=== PATIENT | female | born 1945 | race Caucasian/White ===

== ENCOUNTER 2020-10-17 08:30 | Day surgery (SDC) | payer MEDICARE, MEDICAID ==
[~2020-10-17 08:30] MED LIST: Acetaminophen 1,000 MG in Premix Bag 1 BAG IV ONE; Bupivacaine 25%/EPINEPHrine/PF 30 ML ONE; Glycopyrrolate 0.2 MG/ML SDV ONE; Ketorolac 30 MG/ML SDV ONE; Lactated Ringers 1,000 ML IV SCH; Lidocaine 2% 5 ML SDV ONE; Midazolam 1 MG/ML 2 ML SDV ONE; Octyl 2-Cyanoacrylate 1 Tube ONE; Ondansetron 4 MG/2 ML SDV ONE; Pregabalin 75 MG Cap PO ONE; Propofol 200 MG/20 ML SDV ONE; Rocuronium Bromide 50 MG/5 ML Syringe ONE; Sugammadex Sodium 200 MG/2 ML VIAL ONE; ceFAZolin 1 GM in Premix Bag 1 BAG IV ONE; fentaNYL 100 MCG/2 ML SDV ONE
--- NOTE | 2020-10-17 08:48 | PCM.PREANE ---
Preanesthetic Assessment - Procedure Proposed Procedure: Right Ing Hernia repair, poss Left - Anesthesia/Transfusion/Family Hx Anesthesia History: Prior Anesthesia Without Reaction Transfusion History: No Prior Transfusion(s) - Review of Systems General: No Symptoms Pulmonary: No Symptoms (COPD, Asthma uses singular MDI daily and does Albuterol [place] twice daily) Cardiovascular: No Symptoms Gastrointestinal: No Symptoms Neurological: No Symptoms (h/o seizures as child/young adult, controlled on Phenytoin, no szs last 40 years) Other: Reports: None - Physical Assessment NPO Status Date: 10/16/20 NPO Status Time: 22:30 Height: 5 ft 3 in Weight: 64.41 kg ASA Class: 3 Mental Status: Alert & Oriented x3 Airway Class: Mallampati = 3 Dentition: Reports: Dentures Thyro-Mental Finger Breadths: 3 Mouth Opening Finger Breadths: 2 ROM/Head Extension: Full Lungs: Clear to Auscultation, Normal Respiratory Effort Cardiovascular: Regular Rate, Regular Rhythm - Allergies Allergies/Adverse Reactions: Allergies Allergy/AdvReac Type Severity Reaction Status Date / Time No Known Allergies Allergy Verified 10/11/20 08:45 - Acknowledgements Anesthesia Type Planned: General Anesthesia Pt an Appropriate Candidate for the Planned Anesthesia: Yes Alternatives and Risks of Anesthesia Discussed w Pt/Guardian: Yes Pt/Guardian Understands and Agrees with Anesthesia Plan: Yes PreAnesthesia Questionnaire - Past Health History Medical/Surgical History: Denies Medical/Surgical History HEENT History: Reports: Impaired Vision Other HEENT History: wears glasses, Partial denture on top Cardiovascular History: Reports: None Respiratory History: Reports: Asthma, COPD Gastrointestinal History: Reports: None Genitourinary History: Reports: UTI, Recurrent 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: Musculoskeletal History: Reports: Osteoporosis Neurological History: Reports: Seizure Psychiatric History: Reports: None Endocrine/Metabolic History: Reports: None Hematologic History: Reports: None Immunologic History: Reports: Immunosuppression Oncologic (Cancer) History: Reports: None Dermatologic History: Reports: None - Infectious Disease History Infectious Disease History: Reports: Chicken Pox - Past Surgical History GI Surgical History: Reports: Appendectomy - SUBSTANCE USE Tobacco Use Status *Q: Never Tobacco User Recreational Drug Use History: No - HOME MEDS Home Medications: Home Meds Albuterol Sulfate 1 inhalation NEB Q6HR PRN 06/14/14 [History] Budesonide/Formoterol [Symbicort 160-4.5 MCG] 2 puff IH BID PRN 06/14/14 [History] carBAMazepine [Carbamazepine ER] 100 mg PO TID 06/14/14 [History] carBAMazepine [Carbamazepine] 400 mg PO BID 06/14/14 [History] Albuterol [Ventolin HFA] 2 inh IH Q4H PRN 12/25/16 [History] Ipratropium [Atrovent] 1 inhalation NEB QID PRN 12/25/16 [History] Phenytoin Sodium Extended [Dilantin] 100 mg PO TID 12/25/16 [History] Alendronate Sodium 10 mg PO DAILY 10/11/20 [History] Calcium Carbonate [Calcium] 600 mg PO DAILY 10/11/20 [History] Fluticasone Propionate [Flonase Allergy Relief] 1 - 2 spray NASBOTH DAILY PRN 10/11/20 [History] Potassium Chloride 10 meq PO TID 10/11/20 [History] Vit A/Vit C/Vit E/Zinc/Copper [Preservision] 1 tab PO DAILY 10/11/20 [History] Vitamin E 200 units PO DAILY 10/11/20 [History] - CURRENT (IN HOUSE) MEDS Current Meds: Current Medications Lactated Ringer's (Ringers, Lactated) 1,000 mls @ 125 mls/hr IV ASDIRECTED FLORENCIA Discontinued Medications Fentanyl (Fentanyl 100 Mcg/2 Ml Sdv) Confirm Administered Dose 100 mcg .ROUTE .STK-MED ONE Stop: 10/17/20 07:13 Glycopyrrolate (Glycopyrrolate 0.2 Mg/Ml Sdv) Confirm Administered Dose 0.2 mg .ROUTE .STK-MED ONE Stop: 10/17/20 07:13 Acetaminophen 1,000 mg/ Premix 100 mls @ 400 mls/hr IV ONCALL ONE Stop: 10/05/20 11:43 Cefazolin Sodium/Dextrose 1 gm (/ Premix) 50 mls @ 100 mls/hr IV ONETIME ONE Stop: 10/05/20 11:58 Bupivacaine HCl/Epinephrine Bitart (Sensorc Mpf 0.25%-Epi 1:[id number]) Confirm Administered Dose 30 mls @ as directed .ROUTE .STK-MED ONE Stop: 10/17/20 08:27 Ketorolac Tromethamine (Ketorolac 30 Mg/Ml Sdv) Confirm Administered Dose 30 mg .ROUTE .STK-MED ONE Stop: 10/17/20 07:13 Lidocaine (Lidocaine 2% 5 Ml Sdv) Confirm Administered Dose 5 ml .ROUTE .STK-MED ONE Stop: 10/17/20 07:13 Midazolam HCl (Midazolam 1 Mg/Ml 2 Ml Sdv) Confirm Administered Dose 2 mg .ROUTE .STK-MED ONE Stop: 10/17/20 07:13 Octyl Cyanoacrylate (Octyl 2-Cyanoacrylate 1 Tube) Confirm Administered Dose 1 applic .ROUTE [facility]MED ONE Stop: 10/17/20 08:27 Ondansetron HCl (Ondansetron 4 Mg/2 Ml Sdv) Confirm Administered Dose 4 mg .ROUTE [facility] [employer] [place]MED ONE Stop: 10/17/20 07:13 Pregabalin (Pregabalin 75 Mg Cap) 150 mg PO ONETIME ONE Stop: 10/05/20 11:30 Propofol (Propofol 200 Mg/20 Ml Sdv) Confirm Administered Dose 200 mg .ROUTE [facility] [employer]MED ONE Stop: 10/17/20 07:13 Rocuronium [place] (Rocuronium [place] 50 Mg/5 Ml Syringe) Confirm Administered Dose 50 mg .ROUTE .STK-MED ONE Stop: 10/17/20 07:13 Sugammadex Sodium (Sugammadex Sodium 200 Mg/2 Ml Vial) Confirm Administered Dose 200 mg .ROUTE [facility] [employer] [place]MED ONE Stop: 10/17/20 07:13
[2020-10-17] MEDS ORDERED: ceFAZolin 1 GM Vial ONE (10:20)
[2020-10-17] MEDS ORDERED: fentaNYL 100 MCG/2 ML SDV ONE (10:50)
--- NOTE | 2020-10-17 11:36 | PCM.OPNOTE ---
- General Post-Op/Procedure Note Date of Surgery/Procedure: 10/17/20 Operative Procedure(s): Laparoscopic repair of right inguinal and femoral hernia Findings: Right indirect inguinal hernia, small right femoral. dictation number [id number]. Pre Op Diagnosis: Right inguinal hernia Post-Op Diagnosis: Right indirect inguinal hernia, small right femoral Primary Surgeon: Rigoberto Easley Pathology: none EBL in mLs: 5 Complications: None Condition: Good
--- NOTE | 2020-10-17 11:43 | PCM.POSTAN ---
POST ANESTHESIA ASSESSMENT - MENTAL STATUS Mental Status: Somnolent - VITAL SIGNS Vital Signs: Last Vital Signs Temp 98.6 F 10/17/20 11:34 Pulse 77 10/17/20 11:34 Resp 14 10/17/20 11:34 BP 134/66 10/17/20 11:34 Pulse Ox 98 10/17/20 11:34 - RESPIRATORY Respiratory Status: Respiratory Rate WNL, Airway Patent, O2 Saturation Stable - CARDIOVASCULAR CV Status: Pulse Rate WNL, Blood Pressure Stable - GASTROINTESTINAL GI Status: No Symptoms - PAIN Free Text/Narrative:: Resting comfortably - POST OP HYDRATION Hydration Status: Adequate & Stable
--- NOTE | 2020-10-17 12:26 | PCM48HPAN ---
Post Anesthesia Note - EVALUATION WITHIN 48HRS OF ANESTHETIC Vital Signs in Normal Range: Yes Patient Participated in Evaluation: Yes Respiratory Function Stable: Yes Airway Patent: Yes Cardiovascular Function Stable: Yes Hydration Status Stable: Yes Pain Control Satisfactory: Yes Nausea and Vomiting Control Satisfactory: Yes Mental Status Recovered: Yes Vital Signs: Last Vital Signs Temp 98.6 F 10/17/20 11:34 Pulse 71 10/17/20 12:16 Resp 12 10/17/20 12:16 BP 113/42 L 10/17/20 12:16 Pulse Ox 96 10/17/20 12:16 - COMMENTS/OBSERVATIONS Free Text/Narrative:: Pt doing well post-op. VSS. No apparent anesthetic complications. Dr. Rory Chen
[2020-10-17 13:53] VITALS: BP 112/68; PULSE 72
--- NOTE | 2020-10-17 18:52 | OR ---
SURGEON: EZEQUIEL CHEEMA MD DATE OF PROCEDURE: 10/17/2020 PREOPERATIVE DIAGNOSIS: Right inguinal hernia. POSTOPERATIVE DIAGNOSIS: Right indirect inguinal hernia and beginning of a small right femoral hernia. PRIMARY SURGEON: Ezequiel Cheema MD ANESTHESIA: General. ESTIMATED BLOOD LOSS: 5 mL. SPECIMENS: None. COMPLICATIONS: None. PROCEDURE PERFORMED: Laparoscopic right inguinal and femoral hernia repair with mesh. REASON FOR PROCEDURE: The patient is a pleasant 75-year-old female who says for the past three months she has a bulge in her right lower groin. It bothers her more when she is walking and getting around. She says it always goes away if she lies down. She denies any obstructive symptoms. I did go over with the patient again the risks, goals, and alternatives to procedure. Risks include, but are not limited to bleeding, infection, mesh infection, chronic pain, nerve entrapment, need to convert to open, urinary retention. The patient says she understands and wished to proceed. Also, we might take the round ligament potentially. I also discussed with the patient if she wants to look at the left side and repair it if she has a defect, she said she would like to have this done also. PROCEDURE NARRATIVE: The patient was brought back to the OR. She was prepped and draped in usual sterile fashion. SCDs were placed. Preoperative antibiotics given. Ko catheter placed and anesthesia provided by the Anesthesia team. Time-out performed. An infraumbilical incision was made. This was carried down to the external rectus fascia. A small incision was made. The underlying rectus muscle was atraumatically split to the posterior rectus sheath. Now, a balloon dissecting system was placed to the level of pubic symphysis and inflated. After this was seen to be in good position, the balloon dissecting system was removed and a trocar was placed and sedation began. Now, two more 5 mm trocars were placed in the lower midline. Trocar sites were placed slightly off midline because of her previous incisional scar. Now, we looked at the right side since this was the symptomatic side. Pubic tubercle was cleared. Now, the lateral wall was cleared off also. The patient's round ligament was found and the patient did have associated hernia sac which was dissected off the round ligament. We also pulled back the peritoneal reflection for good landing area for the mesh. We did not take the round ligament. Also, at this time it was noted that she had what looked like to be beginning of a small femoral hernia with a little defect. This was also cleared. There was good hemostasis. Now, we looked at the left side. On the left side, the patient had good peritoneal reflection. No indirect or direct hernia or femoral hernia. Attention was brought back over to the right side. Of note, the patient also had a small lipoma associated with the round ligament, this was also reduced. Now, a large 3DMax mid mesh was placed, laid nice and flat, was tucked beneath the peritoneal reflection, underneath the hernia sac. We had good placement. A tack was placed in the periosteum of Dylon ligament and then one laterally. Insufflation was released and was observed, nothing seemed to slip underneath the mesh. Pneumoperitoneum was re-established. Again, the mesh was in good position. Good hemostasis. Now, preperitoneal pneumo was released one last time. Again, mesh laid nice and flat. The 5 mm trocars were removed along with the umbilical trocar. All the trocar sites were again injected with local. The anterior rectus fascia was closed with 0 Vicryl, and the skin was closed with 4- 0 Monocryl and Dermabond. At the end of the case, sponge and needle count was correct. The patient was transferred to recovery room in stable condition. JOSÉ BUSH /[id number]
== END 2020-10-17 14:29 | disposition home or self-care (01) ==
LOC: MW.SDS 08:30
PROVIDERS: ATTEND Surgery
DX: K40.90 Unilateral inguinal hernia, without obstruction or gangrene, not specified as recurrent (principal); K41.90 Unilateral femoral hernia, without obstruction or gangrene, not specified as recurrent; D17.5 Benign lipomatous neoplasm of intra-abdominal organs; J45.40 Moderate persistent asthma, uncomplicated; M81.0 Age-related osteoporosis without current pathological fracture; Z79.899 Other long term (current) drug therapy
CPT/HCPCS: 49650; A9270; C1781; J0690; J1885; J2250; J2370; J2405; J2704; J3010; J3490; J7030; J7120

== ENCOUNTER 2021-07-19 10:34 | Day surgery (SDC) | payer MEDICARE, MEDICAID ==
[~2021-07-19 10:34] MED LIST changes: -Acetaminophen 1,000 MG in Premix Bag 1 BAG IV ONE; -Bupivacaine 25%/EPINEPHrine/PF 30 ML ONE; -Glycopyrrolate 0.2 MG/ML SDV ONE; -Ketorolac 30 MG/ML SDV ONE; -Lidocaine 2% 5 ML SDV ONE; -Midazolam 1 MG/ML 2 ML SDV ONE; -Octyl 2-Cyanoacrylate 1 Tube ONE; -Ondansetron 4 MG/2 ML SDV ONE; -Pregabalin 75 MG Cap PO ONE; -Propofol 200 MG/20 ML SDV ONE; -Rocuronium Bromide 50 MG/5 ML Syringe ONE; -Sugammadex Sodium 200 MG/2 ML VIAL ONE; -ceFAZolin 1 GM in Premix Bag 1 BAG IV ONE; -fentaNYL 100 MCG/2 ML SDV ONE
[2021-07-19] MEDS ORDERED: Lidocaine 2% 5 ML SDV ONE (11:06)
[2021-07-19] MEDS ORDERED: Propofol 200 MG/20 ML SDV ONE (11:07)
[2021-07-19] MEDS ORDERED: fentaNYL 100 MCG/2 ML SDV ONE (11:07)
[2021-07-19 13:32] VITALS: BP 156/71; PULSE 65
== END 2021-07-19 14:14 | disposition home or self-care (01) ==
LOC: MW.SDS 10:34
PROVIDERS: ATTEND Surgery
DX: D12.3 Benign neoplasm of transverse colon (principal); K64.8 Other hemorrhoids; K29.50 Unspecified chronic gastritis without bleeding; K21.00 Gastro-esophageal reflux disease with esophagitis, without bleeding; K44.9 Diaphragmatic hernia without obstruction or gangrene; B96.81 Helicobacter pylori [H. pylori] as the cause of diseases classified elsewhere; K22.70 Barrett's esophagus without dysplasia; J45.40 Moderate persistent asthma, uncomplicated; J44.9 Chronic obstructive pulmonary disease, unspecified; F32.A Depression, unspecified; D50.9 Iron deficiency anemia, unspecified; G40.909 Epilepsy, unspecified, not intractable, without status epilepticus; Z91.048 Other nonmedicinal substance allergy status; Z98.890 Other specified postprocedural states; Z90.49 Acquired absence of other specified parts of digestive tract; Z79.51 Long term (current) use of inhaled steroids; Z79.899 Other long term (current) drug therapy
CPT/HCPCS: 43239; 45381; 45385; J2704; J3010; J7120; 00813; 88305; 88341; 88342; 99100